=== PATIENT | male | born 1965 | race Caucasian/White ===

== ENCOUNTER 2017-03-29 06:19 | Emergency (ER) | payer OTHER, MEDICAID ==
[2017-03-29 06:33] VITALS: BP 117/86; PULSE 91; RESP 18; TEMP 98.2; O2SAT 94
[2017-03-29] MEDS ORDERED: LIDOCAINE 5% 1 EA PATCH TD ONE ×2 (07:16)
--- NOTE | 2017-03-29 07:16 | EDPHY ---
H & P Time Seen by Provider: 03/29/17 06:57 HPI/ROS: CHIEF COMPLAINT: Low back pain HISTORY OF PRESENT ILLNESS: 51-year-old male presents with low back pain. History of lumbar compression fracture several years ago. Ongoing intermittent back pain since then, with prior relief with steroid injections. 3 days ago he was doing yard work and afterwards developed muscle spasm in his lower back. Since then he has had increasing difficulty with movement, especially with changing positions from sitting to standing. The pain is moderate, centered in his lower back and does not radiate to his legs. He ran out of meloxicam. No numbness or weakness of his legs. REVIEW OF SYSTEMS: Constitutional: No fever, no chills Eyes: No visual changes ENT: No sore throat Respiratory: No cough, no shortness of breath Cardiac: No chest pain Gastrointestinal: No nausea, no vomiting, no abdominal pain Genitourinary: no dysuria Musculoskeletal: No leg pain or swelling Skin: No rash Neurological: No headache, no numbness, no weakness Psychiatric: Schizophrenia Past Medical/Surgical History: Schizophrenia Lumbar compression fracture Social History: PCP: Dr. Liliana Jenkins Smoking Status: Never smoked Physical Exam: General Appearance: Alert, pleasant, appears in pain with position change Eyes: Pupils equal and round ENT, Mouth: Mucous membranes moist Neck: Normal inspection Respiratory: normal respiratory rate Cardiovascular: Regular rate and rhythm Gastrointestinal: Abdomen is soft and nontender Back: Normal inspection, no midline tenderness or paraspinous tenderness Neurological: A&O, motor 5/5, including dorsal foot and 1st toe, patellar DTRs 1+ bilaterally, antalgic gait Skin: Warm and dry Extremities: normal inspection Psychiatric: Mood and affect normal Constitutional: Initial Vital Signs Temperature (C) 36.8 C 03/29/17 06:27 Heart Rate 91 03/29/17 06:27 Respiratory Rate 18 03/29/17 06:27 Blood Pressure 117/86 H 03/29/17 06:27 O2 Sat (%) 94 03/29/17 06:27 O2 Delivery Mode Room Air Allergies/Adverse Reactions: Sulfa (Sulfonamide Antibiotics) Allergy (Mild, Verified 03/29/17 06:33) Home Medications: Medication Instructions Recorded Diazepam [Valium 5 MG (*)] 5 mg PO Q6 PRN #10 tab 03/29/17 Meloxicam 03/29/17 Meloxicam 15 mg PO DAILY #30 tablet 03/29/17 Vraylar 03/29/17 Medical Decision Making ED Course/Re-evaluation: This patient presents with low back pain, consistent with muscular strain. There is no evidence of neurologic compromise and neuro imaging is not indicated. A Lidoderm patch was placed. I wrote prescriptions for Valium and meloxicam. He will follow up with primary care physician in the office. He also requested contact information for Dr. Carranza for consideration of epidural injection. Differential Diagnosis: Differential diagnosis for back pain includes muscular pain, herniated disc, epidural abscess, discitis, spine fracture, intra-abdominal causes and urinary tract infection. Departure - Departure Disposition: Home, Routine, Self-Care Clinical Impression: Low back strain Qualifiers: Encounter type: initial encounter Qualified Code(s): S39.012A - Strain of muscle, fascia and tendon of lower back, initial encounter Condition: Good Instructions: Low Back Strain (ED), Lower Back Exercises (ED) Additional Instructions: Return for worsening symptoms or any concerns. Apply a Lidoderm patch daily, use as instructed. Referrals: Liliana Jenkins [Primary Care Provider] - As per Instructions Isaias Carranza MD [Medical Doctor] - As per Instructions (Call to make an appointment.) Prescriptions: Diazepam [Valium 5 MG (*)] 5 mg PO Q6 PRN #10 tab PRN Reason: muscle spasm Meloxicam 15 mg PO DAILY #30 tablet
[2017-03-29] MEDS ORDERED: PATCH REMOVAL 1 EA PATCH TD SCH ×2 (21:00)
== END 2017-03-29 07:30 | disposition home or self-care (01) ==
DX: S39.012A Strain of muscle, fascia and tendon of lower back, initial encounter (principal); X58.XXXA Exposure to other specified factors, initial encounter; Y99.8 Other external cause status; Y93.89 Activity, other specified

== ENCOUNTER → 2017-06-08 | Day surgery (SDC) | payer OTHER, MEDICAID ==
[~2017-06-08] MED LIST: IOPAMIDOL (ISOVUE-M 300) 15 ML VIAL ONE; TRIAMCINOLONE ACETONIDE 200 MG/5 ML MDV IM ONE
--- NOTE | 2017-06-08 15:17 | PDRADPN ---
Radiology Procedure Note Date of Procedure: 06/08/17 Radiologist: Johnathan Gallegos Anesthesia: Local (Specify) Pre-op Diagnosis: DDD, left leg radiculopathy Post-op Diagnosis: Same Indication: Back pain and pain down left leg Procedure: LESI Finding(s): 80 ml kenalog and 3 ml 1% xylocaine into lumbar epidural space via L 4-5 Inf/Abcess present in the surg proc area at time of surgery?: No EBL: Minimal Complications: None.
== END | disposition home or self-care (01) ==
LOC: FIMAGING 14:15
PROVIDERS: ATTEND Physician Assistant
PROC: 3E0S33Z Introduction of Anti-inflammatory into Epidural Space, Percutaneous Approach (ICD-10-PCS; principal; 2017-06-08)
PROC: 3E0S3BZ Introduction of Anesthetic Agent into Epidural Space, Percutaneous Approach (ICD-10-PCS; principal; 2017-06-08)
DX: M51.17 Intervertebral disc disorders with radiculopathy, lumbosacral region (principal); M51.36 Other intervertebral disc degeneration, lumbar region
CPT/HCPCS: J3301; Q9967

== ENCOUNTER 2017-09-04 14:10 | Day surgery (SDC) | payer OTHER, MEDICAID ==
[2017-09-04] MEDS ORDERED: IOPAMIDOL (ISOVUE-M 300) 15 ML VIAL ONE (15:21)
[2017-09-04] MEDS ORDERED: DEPO METHYLPREDNISOLONE 80 MG/ML SDV ONE (15:21)
== END 2017-09-04 16:36 | disposition home or self-care (01) ==
LOC: FIMAGING 14:10
PROVIDERS: ATTEND Physician Assistant
PROC: 3E0S3BZ Introduction of Anesthetic Agent into Epidural Space, Percutaneous Approach (ICD-10-PCS; principal; 2017-09-04)
PROC: 3E0S33Z Introduction of Anti-inflammatory into Epidural Space, Percutaneous Approach (ICD-10-PCS; principal; 2017-09-04)
DX: M54.16 Radiculopathy, lumbar region (principal); M48.061 Spinal stenosis, lumbar region without neurogenic claudication
CPT/HCPCS: J1040; Q9967

== ENCOUNTER 2017-11-05 07:15 | Inpatient (IN) | payer OTHER, MEDICAID ==
[2018-02-28] MEDS ORDERED: ceFAZolin 2 GM/DEXTROSE 100 ML IV ONE (12:42)
[2018-02-28] MEDS ORDERED: GABAPENTIN 300 MG CAP PO ONE (12:42)
[2018-02-28] MEDS ORDERED: ACETAMINOPHEN 500 MG TAB PO ONE (12:42)
[2018-02-28] MEDS ORDERED: LR 1,000 ML IV ONE (12:43)
[2018-02-28] MEDS ORDERED: LIDOCAINE 1% 2 ML INJ ID PRN (12:43)
[2018-02-28] MEDS ORDERED: MIDAZOLAM 2 MG/2 ML VIAL IVP ONE (13:26)
--- NOTE | 2018-02-28 13:28 | PDANEPAE ---
ANE Past Medical History - Cardiovascular History Hx Hypertension: No Hx Arrhythmias: No Hx Chest Pain: No Hx Coronary Artery / Peripheral Vascular Disease: No Hx CHF / Valvular Disease: No Hx Palpitations: No - Pulmonary History Hx COPD: No Hx Asthma/Reactive Airway Disease: No Hx Recent Upper Respiratory Infection: No Hx Oxygen in Use at Home: No Hx Sleep Apnea: No Sleep Apnea Screening Result - Last Documented: Negative - Neurologic History Hx Cerebrovascular Accident: No Hx Seizures: No Hx Dementia: No - Endocrine History Hx Diabetes: No Hypothyroid: No Hyperthyroid: No Obesity: yes, moderate - Renal History Hx Renal Disorders: No - Liver History Hx Hepatic Disorders: No - Neurological & Psychiatric Hx Hx Neurological and Psychiatric Disorders: Yes Neurological / Psychiatric History Comment: SCHIZOPHRENIA. ANXIETY - Cancer History Hx Cancer: No - Congenital Disorder History Hx Congenital Disorders: No - GI History GERD: no Hx Gastrointestinal Disorders: No - Other Health History Other Health History: NEG - Chronic Pain History Chronic Pain: Yes (BACK PAIN) - Surgical History Prior Surgeries: URETHRAL SURG. WRIST SURG. EPIDURAL INJS ANE Review of Systems Review of Systems: - Exercise capacity Exercise capacity: limited by disability METS (RN): 3 METS ANE Patient History - Allergies Allergies/Adverse Reactions: Sulfa (Sulfonamide Antibiotics) Allergy (Mild, Verified 02/28/18 13:00) Unknown - Home Medications Home Medications: Cariprazine HCl [Vraylar] 3 mg PO DAILY PRN 03/29/17 [Last Taken 02/28/18 08:30] Topiramate [Topamax 25MG (*)] 25 mg PO DAILY PRN 06/05/17 [Last Taken 02/06/18] Aspirin [Aspirin 81mg (*)] 81 mg PO DAILY 08/28/17 [Last Taken 01/31/18] Herbals/Supplements -Info Only 1 ea PO DAILY 10/25/17 [Last Taken 01/27/18] Meloxicam 15 mg PO DAILY PRN 10/25/17 [Last Taken 02/06/18] - Anes Hx Anes Hx: no prior problems - Smoking Hx Smoking Status: Never smoked - Family Anes Hx Family Anes Hx: neg - N/A ANE Labs/Vital Signs - Labs Result Diagrams: 02/28/18 13:12 - Vital Signs Height: 172.72 cm Weight: 108.862 kg ANE Physical Exam - Airway Neck exam: FROM Mallampati Score: Class 2 Mouth exam: normal dental/mouth exam - Pulmonary Pulmonary: no respiratory distress, no rales or rhonchi, clear to auscultation - Cardiovascular Cardiovascular: regular rate and rhythym - ASA Status ASA Status: II ANE Anesthesia Plan Anesthesia Plan: general endotracheal anesthesia Total IV Anesthesia: No
[2018-02-28 13:37] LABS: PLATELET COUNT 294 10^3/uL (150-400)
[2018-02-28] MEDS ORDERED: CHLORHEXIDINE GLUC HIBICLENS 118 ML BTL TP ONE (14:03)
[2018-02-28] MEDS ORDERED: EPINEPHrine 1 MG/ML INJ ONE (14:04)
[2018-02-28] MEDS ORDERED: BUPIVACAINE 0.25% 30 ML SDV ONE ×2 (14:04)
[2018-02-28] MEDS ORDERED: THROMBIN (BOVINE) 5,000 UNIT VIAL TP ONE (14:04)
[2018-02-28] MEDS ORDERED: BACITRACIN 50,000 UNITS/10 ML SYR IRR ONE ×2 (14:09)
[2018-02-28] MEDS ORDERED: THROMBIN (BOVINE) 20,000 UNIT VIAL TP ONE (14:09)
--- NOTE | 2018-02-28 14:10 | PDHPUP ---
History & Physical Update H&P update statement: This history and physical update is based on an assessment of the patient which was completed after admission or registration (within 24 hours), but prior to the surgery/procedure. H&P update: H&P reviewed & patient examined, no change in patient's condition since H&P completed
[2018-02-28] MEDS ORDERED: fentaNYL 100 MCG/2 ML INJ ONE (14:29)
[2018-02-28] MEDS ORDERED: PROPOFOL/EMULSION 500 MG/50 ML BOTTLE IV ONE (14:29)
[2018-02-28] MEDS ORDERED: PROPOFOL 200 MG/20 ML VIAL ONE (14:29)
[2018-02-28] MEDS ORDERED: ONDANSETRON 4 MG/2 ML VIAL ONE (14:33)
[2018-02-28] MEDS ORDERED: ROCURONIUM 50 MG/5 ML VIAL ONE (14:33)
[2018-02-28] MEDS ORDERED: LIDOCAINE 2% 2 ML INJ ONE ×2 (14:34)
[2018-02-28] MEDS ORDERED: DEXAMETHASONE 4 MG/ML VIAL ONE (14:34)
[2018-02-28] MEDS ORDERED: REMIFENTANIL HCL 1 MG VIAL ONE (14:52)
[2018-02-28] MEDS ORDERED: PHENYLEPHRINE HCL 100 MCG/ML SYR IVP PRN (15:20)
[2018-02-28] MEDS ORDERED: HYDROCODONE/APAP 5/325 TAB PO PRN (15:20)
[2018-02-28] MEDS ORDERED: DIAZEPAM 5 MG/ML 1 ML SYR IVP PRN (15:20)
[2018-02-28] MEDS ORDERED: LABETALOL HCL 5 MG/ML 20 ML MDV IVP PRN (15:20)
[2018-02-28] MEDS ORDERED: LR 500 ML IV PRN (15:20)
[2018-02-28] MEDS ORDERED: ACETAMINOPHEN 500 MG TAB PO PRN (15:20)
[2018-02-28] MEDS ORDERED: ONDANSETRON 4 MG/2 ML VIAL IVP PRN ×2 (15:20→16:12)
[2018-02-28] MEDS ORDERED: PROMETHAZINE HCL 25 MG/ML INJ IVP PRN (15:20)
[2018-02-28] MEDS ORDERED: fentaNYL 100 MCG/2 ML INJ IVP PRN (15:20)
[2018-02-28] MEDS ORDERED: NALOXONE HCL 0.4 MG/ML INJ IVP PRN (15:20)
[2018-02-28] MEDS ORDERED: oxyCODONE IR 5 MG TAB PO PRN (15:20)
[2018-02-28] MEDS ORDERED: KETOROLAC 30 MG/1 ML SDV ONE (16:07)
[2018-02-28] MEDS ORDERED: MAGNESIUM HYDROXIDE 30 ML UDCUP PO PRN (16:12)
[2018-02-28] MEDS ORDERED: diphenhydrAMINE 25 MG CAP PO PRN (16:12)
[2018-02-28] MEDS ORDERED: POLYETHYLENE GLYCOL 3350 17 GM PKT PO PRN (16:12)
[2018-02-28] MEDS ORDERED: LACTULOSE 20 GM/30 ML UDCUP PO PRN (16:12)
[2018-02-28] MEDS ORDERED: ONDANSETRON DISINTEGRATING 4 MG TAB PO PRN (16:12)
[2018-02-28] MEDS ORDERED: BISACODYL 10 MG SUPP PR PRN (16:12)
[2018-02-28] MEDS ORDERED: NS 1,000 ML IV SCH (16:15)
[2018-02-28] MEDS ORDERED: TOPIRAMATE 25 MG TAB PO PRN (16:17)
[2018-02-28] MEDS ORDERED: METHOCARBAMOL 1,000 MG in NS 50 ML IVP PRN (16:18)
--- NOTE | 2018-02-28 16:22 | POSTOPPROG ---
Post Op Note Date of Operation: 02/28/18 Surgeon: Isaias Carranza Partition Assembly Machine Operator: Shonda Dyson Anesthesia: GET(General Endotracheal) Pre-op Diagnosis: Lumbar stenosis Post-op Diagnosis: same Procedure: L3-4, L4-5 lumbar decompression Inf/Abcess present in the surg proc area at time of surgery?: No Depth: Organ Space Complications: None observed SOAP Progress Note Assessment/Plan: Assessment: Plan: 02/28/18 16:19 S:Patient in PACU. Stable and still waking up O: NAD, VSS PERRL, EOMI CN II-II grossly intact x4 BLE 5/5= Sensation intact to lt touch Incisiion c/d/i A: 52 yo male sp L3-4, L4-5 lumbar decompression for lumbar stenosis with neurogenic claudication P: -Admit to observation overnight -Advance diet as tolerated -PT/OT -Optimize pain management -Dispo- Home tomorrow if doing well, has ride scheduled with via I believe around 1300. -Call NS with any questions or concerns Objective: Vital Signs Temp Pulse Resp BP Pulse Ox 37.4 C 100 18 111/74 93 02/28/18 13:22 02/28/18 13:22 02/28/18 13:22 02/28/18 13:22 02/28/18 13:22 Laboratory Results 02/28/18 13:12
--- NOTE | 2018-02-28 17:00 | POSTANESTH ---
Post Anesthetic Evaluation Cardiovascular Status: Similar to Pre-Op Cond Respiratory Status: Normal, Stable Level of Consciousness/Mental Status: Can Participate in Eval, Mildly Sleepy, Arousable Pain Control: Adequate, Prn Tx Ordered Nausea/Vomiting Control: Adequate, Prn Tx Ordered Complications Possibly Related to Anesthesia: None Noted
[2018-02-28] MEDS: FAMOTIDINE 20 MG TAB PO SCH (21:19)
[2018-02-28] MEDS: KETOROLAC 30 MG/1 ML SDV IVP SCH ×2 (21:19→23:12)
[2018-02-28] MEDS: SENNOSIDES/DOCUSATE SODIUM TAB PO SCH (21:19)
[2018-02-28] MEDS: METHOCARBAMOL 750 MG TAB PO PRN (21:19)
--- NOTE | 2018-02-28 21:50 | GOP ---
DATE OF OPERATION: 02/28/2018 SURGEON: Isaias Carranza MD NEUROSURGEON: Isaias Carranza MD SUPERVISOR ASSEMBLY STOCK: Shonda Dyson PA-C ANESTHESIA: General endotracheal. PREOPERATIVE DIAGNOSIS: Lumbar stenosis with neurogenic claudication. POSTOPERATIVE DIAGNOSIS: Lumbar stenosis with neurogenic claudication. PROCEDURE PERFORMED: 1. Minimally invasive lumbar laminectomy, L3-4, L4-5. 2. Decompression of the cauda equina. 3. Use of the operative microscope. 4. Stealth/O-arm stereotactic navigation for tubular retractor placement. FINDINGS: Successful lumbar decompression. SPECIMENS: There were no specimens. ESTIMATED BLOOD LOSS: 15 cc. INDICATIONS: The patient is a 52-year-old male with schizophrenia and some buttock pain with walking . He has been seen in the office numerous times and has essentially neurogenic claudication with wal luis miguel. His MRI revealed severe stenosis at L3-4 and moderately severe stenosis at L4-5, especially on the left side. He has undergone multiple rounds of conservative management without success. He pre sents today electively for a minimally invasive lumbar decompression. DESCRIPTION OF PROCEDURE: After informed consent was obtained from the patient, the patient was brou ght to the operating room and a formal time-out was performed, identifying the patient by name, medic al record number, and date of . Preoperative antibiotics were given. An endotracheal tube was placed and general endotracheal anesthesia was smoothly induced. All appropriate leads were placed f or intraoperative neurophysiologic monitoring, including somatosensory evoked potentials and EMG. Th e patient was then turned to the prone position on the Heber table and all appropriate pressure poi nts were padded and checked. The lumbar region was prepped and draped in normal sterile fashion. A stab incision was made over the right iliac crest and the percutaneous navigation pin was placed into the iliac crest, and the navigation frame was attached. An O-arm spin was then obtained showing the relevant anatomy from L2 to S1 and navigation was then used to localize the trajectory to the L3-4 a nd L4-5 disk spaces. A 1.5 cm incision was then marked in the midline spanning both of these spaces. 10 cc of 0.25% Marcaine with epinephrine was infiltrated in the skin for hemostasis. The skin inci uli was then made using a 10 blade, and the subcutaneous tissues were dissected using monopolar elec trocautery. The fascia was opened just to the left of the midline and the metrics dilators were used to dock onto the L3 lamina above the L3-4 disk space. After the dilators, a 6 cm x 18 mm quadrant r etractor was placed, docked onto the L3 lamina. The operative microscope was brought on the field an d the remainder of the procedure was performed under high-power magnification. First, using the mariaa gation, we localized the landmarks of the medial facet joint, the superior extent of the decompressio n and the inferior extent. A high-speed drill with a 3 mm cheryl bur was then used to drill a hemil aminotomy and to drill the undersurface of the contralateral lamina. The yellow ligament was opened and was completely removed on the ipsilateral side. We then able to visualize the dura and remove th e yellow ligament on the contralateral side as well. The upper portion of the L4 lamina was also rem jessica and completely decompressed. The extent of the decompression on both sides was checked using th e navigation and we had completely decompressed the thecal sac across the disk space. At this point, the wound was copiously irrigated using bacitracin irrigation. Some local anesthetic and Gelfoam we re placed over the laminotomy site. The tubular retractor was removed and then the dilators were use d to replace the tubular retractor at the L4-5 interspace. The same procedure was performed where a hemilaminotomy was drilled using the 3 mm cheryl bur and the yellow ligament was removed Ipsilateral ly and contralaterally under the contralateral lamina. Again, the extent of the decompression was ch ecked using the Stealth and once we had achieved adequate decompression, the wound was copiously irri gated using bacitracin irrigation. Again, local anesthetic and some Gelfoam were placed in the hemil aminotomy defect and the tubular retractor was removed. The subcutaneous tissues and muscle were inf iltrated then with local anesthetic for postoperative analgesia. The fascia was closed using interru pted 0 Vicryl sutures. The deep dermis was closed using interrupted 2-0 Vicryl. The skin was closed using Dermabond. The patient was then awakened in the operating, where he was extubated and transfe rred to the PACU in stable condition. There were no operative complications. I was scrubbed and pre sent for the entire procedure. All sponge and needle counts were correct at the end of the case. FLUIDS AND URINE OUTPUT: Per the anesthesia record. DRAINS: There were no drains. /[id number]/MODL
[2018-02-28] MEDS: ceFAZolin 2 GM/DEXTROSE 100 ML IV SCH (23:12)
--- NOTE | 2018-03-01 06:29 | NEUSURGPN ---
Assessment/Plan: A: 52 yo male sp L3-4, L4-5 lumbar decompression for lumbar stenosis with neurogenic claudication POD1 P: -PT/OT -Optimize pain management -Dispo- Home today doing well, has ride scheduled with via I believe around 1300. -Call NS with any questions or concerns Subjective: low back pain, tolerable with medications Objective: NAD, x4 BLE 5/5= Sensation intact to lt touch Incisiion c/d/i - Physician Discussed Patient with : Tere Neurosurgery Physical Exam - Vitals, I&O, Labs I and O 02/28/18 03/01/18 03/02/18 05:59 05:59 05:59 Intake Total 1750 Output Total 700 Balance 1050 Weight 108.862 kg 108.862 kg Intake: Oral (ml) 250 IV Intake (ml) 1500 Output: Urine (ml) 700 Urinal 700 Other: Intake Quantity Yes Sufficient Number of Voids Urinal 1 Vital Signs Temp Pulse Resp BP Pulse Ox 36.9 C 90 16 113/71 96 03/01/18 04:00 03/01/18 04:00 03/01/18 04:00 03/01/18 04:00 03/01/18 04:00 Laboratory Results 02/28/18 13:12 ICD10 Worksheet Patient Problems: Problems Problem Status Onset Lumbar stenosis Acute - ICD10 Problem Qualifiers (1) Lumbar stenosis
[2018-03-01] MEDS: ceFAZolin 2 GM/DEXTROSE 100 ML IV SCH (06:39)
[2018-03-01] MEDS: KETOROLAC 30 MG/1 ML SDV IVP SCH ×2 (06:39→18:00)
[2018-03-01] MEDS: CARIPRAZINE HCL 3 MG PO PRN ×2 (09:45→20:49)
[2018-03-01] MEDS: SENNOSIDES/DOCUSATE SODIUM TAB PO SCH ×2 (09:45→20:49)
[2018-03-01] MEDS: FAMOTIDINE 20 MG TAB PO SCH ×2 (09:45→20:49)
[2018-03-01] MEDS: METHOCARBAMOL 750 MG TAB PO PRN ×2 (09:45→15:04)
[2018-03-01] MEDS: ENOXAPARIN 40 MG/0.4 ML SYR SC SCH (09:45)
--- NOTE | 2018-03-01 10:05 | ASMTLACE ---
STEPANE Length of stay for Answers: 2 days current admission Acuity / Level of Answers: No Care: Did the patient have an inpatient admission? # of Emergency department Answers: 0 visits in the last 6 months Social determinants Answers: Mental health diagnosis (anxiety, depression, pers onality disorders, etc.) Lack of community resources and/or lack of social support (no pcp, lives alone, transportation, darien d) Score: 9 Date Signed: 03/01/2018 10:04 AM Electronically Signed By:SANTO Marley
--- NOTE | 2018-03-01 14:56 | ASMTCMCOM ---
CM Note CM Note Notes: Pt had planned surgery for lumbar stenosis. Pt with schizophrenia, resides alone. PT rec HHC, pt amenable. Pt address/phone verified. [facility] can accept and have protocol with MD office so no orders are needed. Franny Edwards to call pt today about scheduled start of care. Date Signed: 03/01/2018 02:53 PM Electronically Signed By:SANTO Marley
[2018-03-01] MEDS: oxyCODONE IR 5 MG TAB PO PRN (15:04)
[2018-03-02] MEDS: KETOROLAC 30 MG/1 ML SDV IVP SCH ×5 (00:31→19:07)
[2018-03-02] MEDS: METHOCARBAMOL 750 MG TAB PO PRN (01:09)
[2018-03-02] MEDS: IBUPROFEN 800 MG TAB PO SCH ×4 (04:24→22:07)
[2018-03-02] MEDS: FAMOTIDINE 20 MG TAB PO SCH ×2 (09:29→22:07)
[2018-03-02] MEDS: ENOXAPARIN 40 MG/0.4 ML SYR SC SCH (09:29)
[2018-03-02] MEDS: SENNOSIDES/DOCUSATE SODIUM TAB PO SCH ×2 (09:30→22:07)
--- NOTE | 2018-03-02 10:46 | NEUSURGPN ---
Assessment/Plan: Assessment: Plan: 02/28/18 16:19 Assessment/Plan: A: 52 yo male sp L3-4, L4-5 lumbar decompression for lumbar stenosis with neurogenic claudication POD2 P: -PT/OT -Optimize pain management -Dispo- Home today, stayed one more night due to pain control issues. Should have ride arranged late today. Case management arranged home health care for him -Call NS with any questions or concerns Subjective: low back pain, tolerable with medications, leg and back pain feel different than prior to surgery. Objective: NAD, x4 BLE 5/5= Sensation intact to lt touch Incisiion c/d/i - Physician Discussed Patient with : Tere Neurosurgery Physical Exam - Vitals, I&O, Labs I and O 03/01/18 03/02/18 03/03/18 05:59 05:59 05:59 Intake Total 1750 2300 Output Total 700 1850 Balance 1050 450 Weight 108.862 kg Intake: Oral (ml) 250 2300 IV Intake (ml) 1500 Output: Urine (ml) 700 1850 Toilet 600 Urinal 700 1250 Other: Intake Quantity Yes Sufficient Number of Voids Toilet 3 Urinal 1 1 Vital Signs Temp Pulse Resp BP Pulse Ox 36.7 C 89 16 105/78 91 L 03/02/18 07:27 03/02/18 07:27 03/02/18 07:27 03/02/18 07:27 03/02/18 07:27 Laboratory Results 02/28/18 13:12 ICD10 Worksheet Patient Problems: Problems Problem Status Onset Lumbar stenosis Acute
--- NOTE | 2018-03-02 16:56 | ASMTCMCOM ---
CM Note CM Note Notes: [facility] scheduled to start care tomorrow 03/03/18, Franny with [facility] visited pt today. Pt is not processing/internalizing precautions, d/c instructions and did not obtain a walker. Concern for d/c today and safer d/c is day the [facility] can start care. Pt does function in the community, reports his psych care is through [facility], but this surgery after care is more challenging for pt. Pt has no support network, brother resides in [place]. Pt does not qualify for SNF nor is he interested. Case management provides pt with walker. D/c plan of care: Home tomorrow with [facility] starting care tomorrow Date Signed: 03/02/2018 04:55 PM Electronically Signed By:SANTO Marley
[2018-03-02] MEDS: CARIPRAZINE HCL 3 MG PO PRN (23:41)
[2018-03-03] MEDS: KETOROLAC 30 MG/1 ML SDV IVP SCH ×2 (01:31→01:33)
[2018-03-03] MEDS: IBUPROFEN 800 MG TAB PO SCH ×4 (04:33→20:55)
[2018-03-03] MEDS: ENOXAPARIN 40 MG/0.4 ML SYR SC SCH (09:10)
[2018-03-03] MEDS: METHOCARBAMOL 750 MG TAB PO PRN (09:12)
[2018-03-03] MEDS: SENNOSIDES/DOCUSATE SODIUM TAB PO SCH ×2 (09:13→20:55)
[2018-03-03] MEDS: FAMOTIDINE 20 MG TAB PO SCH ×2 (09:13→20:54)
[2018-03-03] MEDS: oxyCODONE IR 5 MG TAB PO PRN (09:13)
--- NOTE | 2018-03-03 12:41 | NEUSURGPN ---
Assessment/Plan: Assessment: Plan: 02/28/18 16:19 Assessment/Plan: A: 52 yo male sp L3-4, L4-5 lumbar decompression for lumbar stenosis with neurogenic claudication POD3 P: -Neuro: OVerall leg pain improved, incisional pain still main complaint and is grossly weak from not being as mobile prior to surgery. -PT/OT -Optimize pain management -Dispo- Patient is doing better but given his past medical hx of schizophrenia, his slow progress with PT and being a fall risk patient is not safe to go home today. Would benefit for short term stay in SNF to work on mobility. Case management to work on this today. PT recommending short stay as well. If not, HHC, but would do much better with some 24 hour supervision for a couple of days. -Scripts on chart -Call NS with any questions or concerns Subjective: low back pain, tolerable with medications, leg and back pain feel different than prior to surgery. Objective: NAD, x4 BLE 5/5= Sensation intact to lt touch Incisiion c/d/i - Physician Discussed Patient with : Tere Neurosurgery Physical Exam - Vitals, I&O, Labs I and O 03/02/18 03/03/18 03/04/18 05:59 05:59 05:59 Intake Total 2300 1000 Output Total 1850 700 Balance 450 300 Intake: Oral (ml) 2300 1000 Output: Urine (ml) 1850 700 Toilet 600 400 Urinal 1250 300 Other: Intake Quantity Yes Sufficient Number of Voids Toilet 3 1 Urinal 1 Vital Signs Temp Pulse Resp BP Pulse Ox 37.0 C 88 16 107/71 93 03/03/18 07:24 03/03/18 07:24 03/03/18 07:24 03/03/18 07:24 03/03/18 07:24 Laboratory Results 02/28/18 13:12 ICD10 Worksheet Patient Problems: Problems Problem Status Onset Lumbar stenosis Acute
[2018-03-03] MEDS: METHOCARBAMOL 750 MG TAB PO SCH ×3 (12:51→20:55)
--- NOTE | 2018-03-03 16:48 | ASMTCMCOM ---
CM Note CM Note Notes: Patient lives alone and MD thinking that it would be best for him to have a short rehab stay before returning home. Sent referrals to numerous facilities. Faxed [facility] for Level 2 screen-well managed schizophrenia. Date Signed: 03/03/2018 04:47 PM Electronically Signed By:Mell Kern LCSW
--- NOTE | 2018-03-03 18:02 | PDMN ---
Medical Necessity Medical necessity: [facility] [place] S810 lumbar lami L3-4, L4-5, decompression, ... extended stay needed post op for extended need for PT/OT, pain management, PT fall risk PMHx of Schizophrenia has slowed progress with PT, pt not safe to return home at this time,
[2018-03-03] MEDS: CARIPRAZINE HCL 3 MG PO PRN (20:56)
[2018-03-04] MEDS: IBUPROFEN 800 MG TAB PO SCH ×2 (05:06→10:16)
[2018-03-04] MEDS: METHOCARBAMOL 750 MG TAB PO SCH ×2 (05:06→11:58)
--- NOTE | 2018-03-04 07:55 | NEUSURGPN ---
Date of Surgery: 02/28/18 Post Op Day: 4 Assessment/Plan: Assessment: 52 yo male s/p L3-4, L4-5 lumbar decompression for lumbar stenosis with neurogenic claudication POD #4 Plan: -Neuro: leg pain improved, incisional pain still main complaint but better-no focal weakness -PT/OT-CPM -optimize pain management -Dispo- patient is doing better but given his past medical hx of schizophrenia, his slow progress with PT and being a fall risk patient was felt not safe to go home over weekend. We will revisit this today and have PT/OT see and Case Management as well to work on final dispo -pt may benefit from short term stay in SNF to work on mobility. -over weekend PT recommending short stay as well. If not, C, but would do much better with some 24 hour supervision for a couple of days. -Scripts on chart -RN to call me if able to dc -Call NS with any questions or concerns Subjective: Awake and alert. NAD. Eating/drinking and voiding. No f/c/n/v/d. No paiz/neck/ chest/abd or gu complaints Objective: AAO x 3, PERRLA/EOMI no droop CN 2-12 grossly intact +lt touch 5/5 BUE/BLE = CDI Neuro Check Frequency: per routine Urinary Catheter in Place: No - Physician Discussed Patient with : Tere Neurosurgery Physical Exam - Vitals, I&O, Labs I and O 03/03/18 03/04/18 03/05/18 05:59 05:59 05:59 Intake Total 1000 Output Total 700 1652 Balance 300 -1652 Intake: Oral (ml) 1000 Output: Urine (ml) 700 1652 Toilet 400 400 Urinal 300 1252 Other: Intake Quantity Yes Yes Sufficient Number of Voids Toilet 1 Urinal 4 Number of Stools Urinal 0 Vital Signs Temp Pulse Resp BP Pulse Ox 36.9 C 90 18 116/77 91 L 03/03/18 22:41 03/03/18 22:41 03/03/18 22:41 03/03/18 22:41 03/03/18 22:41 Laboratory Results 02/28/18 13:12 ICD10 Worksheet Patient Problems: Problems Problem Status Onset Lumbar stenosis Acute
[2018-03-04] MEDS: ENOXAPARIN 40 MG/0.4 ML SYR SC SCH (07:57)
[2018-03-04] MEDS: FAMOTIDINE 20 MG TAB PO SCH (07:58)
[2018-03-04] MEDS: SENNOSIDES/DOCUSATE SODIUM TAB PO SCH (07:58)
[2018-03-04 08:07] VITALS: BP 129/70
--- NOTE | 2018-03-04 12:04 | ASMTCMCOM ---
CM Note CM Note Notes: CM met with pt. Pt is declining SNF rehab and will be d/cing home with [facility]. [facility] met with the pt. They are asking to be contacted as soon as a d/c date is set. They have thought he was being d/evans several times prior to today. Pt has a walker at home and he is borrowing one from [facility] so that he is able to transition from the hospital to home. CM to follow. D/C Plan: Home with [facility]. Date Signed: 03/04/2018 12:03 PM Electronically Signed By:Rita Michael
--- NOTE | 2018-03-04 12:18 | PDIAF ---
- Diagnosis Diagnosis: s/p L spine decompression Code Status: Full Code - Medication Management Discharge Medications: Medications to Continue on Transfer Cariprazine HCl [Vraylar] 3 mg PO DAILY PRN 03/29/17 [Last Taken 02/28/18 08:30] Topiramate [Topamax 25MG (*)] 25 mg PO DAILY PRN 06/05/17 [Last Taken 02/06/18] Aspirin [Aspirin 81mg (*)] 81 mg PO DAILY 08/28/17 [Last Taken 01/31/18] Herbals/Supplements -Info Only 1 ea PO DAILY 10/25/17 [Last Taken 01/27/18] Cyclobenzaprine [Flexeril 10 MG (*)] 10 mg PO TID PRN #40 tab 02/28/18 [Last Taken Unknown] Polyethylene Glycol 3350 [Miralax 17 gm (*)] 17 gm PO DAILY PRN pkt 02/28/18 [ Last Taken Unknown] oxyCODONE IR [Oxycodone Ir (*)] 5 - 10 mg PO Q4HRS PRN #42 tab 02/28/18 [Last Taken Unknown] Ibuprofen [Motrin (*)] 800 mg PO Q6H #90 tab 03/02/18 [Last Taken Unknown] Methocarbamol [Robaxin 750 mg (*)] 750 mg PO QID #30 tab 03/04/18 [Last Taken Unknown] Manager Party Antibiotics: none Discharge Medications: Refer to the Discharge Home Medication list for PRN reason. PICC Care - Routine: N/A - Orders Services needed: Home Care, Physical Therapy Home Care Face to Face: I certify that this patient was under my care and that I had the required [id number] encounter meeting the encounter requirements on the discharge day. My findings support the fact that the patient is homebound as defined in Home Care Face to Face Continued: CMS Chapter 7 Medicare Benefits Manual 30.1.1 , The condition of the patient is such that there exists a normal inability to leave home and consequently, leaving home would require a considerable and taxing effort. Diet Recommendation: no restrictions on diet Diet Texture: Regular Texture Diet Tube feeding: none [place]: Not applicable Additional Instructions: [facility] [phone] Follow up in 2-[address] Carranza Call [phone] You may shower today 03/02/2018 keep showers short 5-7 minutes, no dressing needed pat dry and leave clean and dry No bending, lifting, twisting more than 5-10 pounds for 6 weeks Walking is encouraged Take ibuprofen 800mg every 6 hours as needed to pain along with muscle relaxant first, then can take oxycodone only if needed Call with any questions or concerns - Follow Up Care Current Providers and Referrals: Liliana Jenkins [Primary Care Provider] - Isaias Carranza MD [Medical Doctor] - (follow up in 2-3 weeks)
--- NOTE | 2018-03-04 17:30 | ASDISCHSUM ---
Discharge Information Plan Status:Home with Home Health Medically Cleared to Leave: Discharge Date:03/04/2018 12:56 PM CM D/C Disposition:Home Health Service ADT D/C Disposition:Home Health Service Projected Discharge Date:03/04/2018 11:00 AM Transportation at D/C: Discharge Delay Reason: Follow-Up Date:03/04/2018 11:00 AM Discharge Slot: Final Diagnosis:L3-4, L4-5 decompression , lumbar stenosis Placement Information Referral Type:*Home Health Care Services Referral ID:[id number] Provider Name:[facility] ([facility]) Address 1:[address] [address] Address 2: City:[place] Selection Factors: State:[place] Referral Type:*Detention/SNF Referral ID:[id number] Provider Name: Address 1: Phone Number: Address 2: Fax Number: City: Selection Factors: State: Patient Contact Information Contact Name:SOMMER Relationship: Address: Home Phone: City: [facility] Phone: State/Zip Code:[place] Email: Financial Information Financial Class:Medicare Advantage Plans Primary Plan Desc:[employer] Primary Plan Number:[id number] Secondary Plan Desc:[facility] Secondary Plan Number:[id number] Assessment Information LACE LACE Length of stay for Answers: 2 days current admission Acuity / Level of Answers: No Care: Did the patient have an inpatient admission? # of Emergency department Answers: 0 visits in the last 6 months Social determinants Answers: Mental health diagnosis (anxiety, depression, pers onality disorders, etc.) Lack of community resources and/or lack of social support (no pcp, lives alone, transportation, darien d) Score: 9 Date Signed: 03/01/2018 10:04 AM Electronically Signed By:SANTO Marley [facility] CM Progress Note CM Note CM Note Notes: Pt had planned surgery for lumbar stenosis. Pt with schizophrenia, resides alone. PT rec [facility], pt amenable. Pt address/phone verified. [facility] can accept and have protocol with MD office so no orders are needed. Franny with [facility] to call pt today about scheduled start of care. Date Signed: 03/01/2018 02:53 PM Electronically Signed By:SANTO Marley [facility] CM Progress Note CM Note CM Note Notes: [facility] is scheduled to start care tomorrow 03/03/18, Franny Edwards visited pt today. Pt is not processing/internalizing precautions, d/c instructions and did not obtain a walker. Concern for d/c today and safer d/c is day the [facility] can start care. Pt does function in the community, reports his psych care is through [facility], but this surgery after care is more challenging for pt. Pt has no support network, brother resides in [place]. Pt does not qualify for SNF nor is he interested. Case management provides pt with walker. D/c plan of care: Home tomorrow with [facility] starting care tomorrow Date Signed: 03/02/2018 04:55 PM Electronically Signed By:SANTO Marley [facility] CM Progress Note CM Note CM Note Notes: Patient lives alone and MD thinking that it would be best for him to have a short rehab stay before returning home. Sent referrals to numerous facilities. Faxed pas for Level 2 screen-well managed schizophrenia. Date Signed: 03/03/2018 04:47 PM Electronically Signed By:Mell Kern LCSW [facility] CM Progress Note CM Note CM Note Notes: CM met with pt. Pt is declining SNF rehab and will be d/cing home with [facility]. [facility] met with the pt. They are asking to be contacted as soon as a d/c date is set. They have thought he was being d/evans several times prior to today. Pt has a walker at home and he is borrowing one from [facility] so that he is able to transition from the hospital to home. CM to follow. D/C Plan: Home with [facility]. Date Signed: 03/04/2018 12:03 PM Electronically Signed By:Rita Michael Intervention Information
== END 2018-03-04 12:56 | disposition home health service (06) | DRG 519 ==
LOC: F3N 02-28 11:56 → OBSVTOIN 03-03 17:50
PROVIDERS: ADMIT Neurological Surgery; ATTEND Neurological Surgery
DX: M48.062 Spinal stenosis, lumbar region with neurogenic claudication (principal); F20.89 Other schizophrenia
CPT/HCPCS: 97116-GP; 97161-GP; 97165-GO; 97530-GO; 97530-GP; 97535-GO; G0378; G8978-GP-CJ; G8979-GP-CI; G8987-GO-CI; G8988-GO-CI; J0171; J0690; J1100; J1650; J1885; J2250; J2405; J2704; J3010